=== PATIENT | male | born 1965 | race Caucasian/White ===

== ENCOUNTER → 2017-05-25 08:56 | Outpatient (CLI) | payer OTHER, SELFPAY ==
--- NOTE | 2017-05-25 08:59 | US_ITS ---
HISTORY: ITS.REASON: RUQ PAIN ORDERING PHYSICIAN: Blake Boyle MD PATIENT AGE: 51 years COMPARISON: None FINDINGS: PANCREAS: Unremarkable. No obvious mass or abnormal fluid collection. No ductal dilatation LIVER: No focal liver lesions demonstrated. Homogeneous echogenicity. No intrahepatic biliary ductal dilatation evident RIGHT KIDNEY: Submillimeter right exophytic renal cyst. No hydronephrosis GALLBLADDER: Multiple calcified gallstones are present. Common bile duct is normal at 4 mm. No gallbladder wall thickening or pericholecystic fluid IMPRESSION: Cholelithiasis
== END ==
PROVIDERS: PCP Emergency Medicine; Visit Provider Emergency Medicine
DX: R10.11 Right upper quadrant pain (principal)
CPT/HCPCS: 76705

== ENCOUNTER → 2017-06-26 12:47 | Outpatient (CLI) | payer OTHER, SELFPAY ==
[2017-06-26 13:27] LABS: Basophils # 0.1 K/mm3 (0-0.2); Basophils % 0.6 % (0.1-2.0); Eosinophils # 0.1 K/mm3 (0.0-0.4); Eosinophils % 1.3 % (0.1-12.0); Hematocrit 49.2 % (42.0-52.0); Hemoglobin 16.4 g/dL (14.1-18.0); Lymphocytes # 2.2 K/mm3 (0.7-4.5); Lymphocytes % 24.8 K/mm3 (10-50); Mean Corpuscular HGB Conc 33.4 g/dL (31.8-35.4); Mean Corpuscular Volume 86.9 fl (80-94); Mean Platelet Volume 8.7 fl (7.4-10.4); Monocytes # 0.6 K/mm3 (0.1-1.0); Monocytes % 7.1 % (1.7-9.3); Neutrophils # 5.9 K/mm3 (1.8-7.8); Neutrophils % 66.2 % (37.0-80.0); Platelet Count 300 K/mm3 (142-424); Red Blood Count 5.66 M/mm3 (4.60-6.20); Red Cell Distribution Width 13.1 % (11.5-17.5); White Blood Count 8.9 K/mm3 (4.8-10.8)
[2017-06-26 13:47] LABS: Alanine Aminotransferase 121 U/L (12-78); Albumin Level 3.6 gm/dL (3.4-5.0); Albumin/Globulin Ratio 0.8 (1.1-1.8); Alkaline Phosphatase 87 U/L (46-116); Anion Gap 15.1 mEq/L (5-15); Aspartate Amino Transferase 71 U/L (15-37); Bilirubin,Total 0.5 mg/dL (0.2-1.0); Blood Urea Nitrogen 12 mg/dL (7-18); Calcium 9.4 mg/dL (8.5-10.1); Carbon Dioxide 24 mmol/L (21.0-32.0); Chloride 104 mmol/L (98-107); Creatinine,Serum 1.01 mg/dL (0.70-1.30); Estimated Glomerular Filt Rate 78 ml/min (>60); GFR (African American) 94 ML/MIN (>60); Globulin 4.5 gm/dl (1.3-3.2); Glucose 146 mg/dL (74-106); Potassium 4.1 mmoL/L (3.5-5.1); Sodium 139 mmol/L (136-145); Total Protein,Serum 8.1 gm/dL (6.4-8.2)
== END ==
PROVIDERS: Surgery; PCP Emergency Medicine; Visit Provider Emergency Medicine
DX: K80.10 Calculus of gallbladder with chronic cholecystitis without obstruction (principal)
CPT/HCPCS: 36415; 80053; 85025

== ENCOUNTER 2017-06-29 06:06 | Day surgery (SDC) | payer OTHER, SELFPAY ==
[2017-06-28 13:22] VITALS: BMI 59.2
[2017-06-29] VITALS (15 sets, daily range): BP systolic 100–145; BP diastolic 60–80; PULSE 65–77; RESP 16–18; TEMP 36.6–43; O2SAT 91–95
--- NOTE | 2017-06-29 07:05 | HMH.ANESCL ---
[facility] Anesthesia Checklist - Patient Identification Patient Identification: Arm Band, Verbal (Name & ) - Structural Data Admitted From: Home Planned Operative Procedure/s: lap choly Consent for Planned Operative Procedure(s) Verified: Yes Verified Documents: Surgical Consent - Chart Verification Results Verified: CBC, BMP, ECG - Additional verifications Patient : No Anesthesia Reactions: No Hx Blood Transfusions: No Blood Transfusion Reaction: No Cephalosporin Allergy: No Previous Colonoscopy: No - Cardiovascular Assessment Heart Sounds: S1 & S2 Pulse Strength: Baseline Pulse Rhythm: Regular Peripheral Edema: No - Airway Assessment C-Spine Mobility Assessed: Yes TMJ Mobility Assessed: Yes Dentition: Edentulous - Neurological Assessment Level of Consciousness: Awake, Alert, Appropriate Hx Seizures: No Numbness or tingling in extremities: No - Anesthesia Plan Anesthesia Risk discussed: Yes ASA Class: III Anesthesia Type: General [facility] Anesthesia HX I have reviewed the patient's past medical history: Yes Medical History: Reports:: Asthma, Coronary Artery Disease, Gall Bladder Disease, Gastroesophageal Reflux Disease(GERD), Hyperlipidemia Denies:: Cancer, Diabetes Mellitus Type 1, Diabetes Mellitus Type 2, MRSA, Seizures Other Medical History: Reports: Other (high cholesterol). Denies: Blood Transfusion Reaction Amputation: No Fractures: Yes (wrist) *Family Hx:: Asthma, Cancer, Coronary Artery Disease, Diabetes, Heart Attack, Hypertension
--- NOTE | 2017-06-29 07:09 | P.PN_ITS ---
[facility] Anesthesia Checklist - Patient Identification Patient Identification: Arm Band, Verbal (Name & ) - Structural Data Admitted From: Home Planned Operative Procedure/s: lap choly Consent for Planned Operative Procedure(s) Verified: Yes Verified Documents: Surgical Consent - Chart Verification Results Verified: CBC, BMP, ECG - Additional verifications Patient : No Anesthesia Reactions: No Hx Blood Transfusions: No Blood Transfusion Reaction: No Cephalosporin Allergy: No Previous Colonoscopy: No - Cardiovascular Assessment Heart Sounds: S1 & S2 Pulse Strength: Baseline Pulse Rhythm: Regular Peripheral Edema: No - Airway Assessment C-Spine Mobility Assessed: Yes TMJ Mobility Assessed: Yes Dentition: Edentulous - Neurological Assessment Level of Consciousness: Awake, Alert, Appropriate Hx Seizures: No Numbness or tingling in extremities: No - Anesthesia Plan Anesthesia Risk discussed: Yes ASA Class: III Anesthesia Type: General [facility] Anesthesia HX I have reviewed the patient's past medical history: Yes Medical History: Reports:: Asthma, Coronary Artery Disease, Gall Bladder Disease , Gastroesophageal Reflux Disease(GERD), Hyperlipidemia Denies:: Cancer, Diabetes Mellitus Type 1, Diabetes Mellitus Type 2, MRSA, Seizures Other Medical History: Reports: Other (high cholesterol). Denies: Blood Transfusion Reaction Amputation: No Fractures: Yes (wrist) *Family Hx:: Asthma, Cancer, Coronary Artery Disease, Diabetes, Heart Attack, Hypertension
--- NOTE | 2017-06-29 08:39 | P.OP_ITS ---
Date of procedure: 06/29/17 Pre-op Diagnosis:: Chronic calculus cholecystitis Post-op diagnosis:: same Procedure performed:: Laparoscopic cholecystectomy Surgeon:: Jose Mcelroy MD [employer]aged Services Sales Consultant(s):: Deisy Julian BAKER PAINT:: Anthony Medina Anesthesia: GETA Estimated blood loss (mL): 10 Operative findings:: Severe pericholecystic fat stranding secondary to chronic cholecystitis Operative note:: After informed consent was obtained, the patient was taken to the operating room and placed in the supine position. General anesthesia was induced and the abdomen was prepped and draped in a sterile fashion. After infiltration with local anesthetic an infraumbilical incision was made. A Veress needle was placed in position. The abdomen was insufflated. A 5 mm optical trocar was placed in position. Under direct visualization, a 12 mm trocar was placed in the subxiphoid position and 2 additional 5 mm trocars were placed in the right upper quadrant. The gallbladder was elevated up and over the liver margin. Severe pericholecystic fat stranding was noted. Extensive dissection was utilized to separate the gallbladder from surrounding tissue as it was carefully elevated. The tissue around the cystic duct was carefully dissected. 3 clips were placed proximally and the duct was transected with harmonic casie. Harmonic casie were then utilized to dissect the gallbladder away from the liver margin with careful attention to the control of the cystic artery. The gallbladder was placed in a retrieval bag and removed through the subxiphoid trocar site. The right upper quadrant was thoroughly irrigated. No active bleeding or bile leak was noted. Fascia at the subxiphoid trocar site was reapproximated utilizing the 0 Ethibond. The remaining trocars were removed. All wounds were irrigated and skin was closed with 4-0 Monocryl in a subcuticular fashion. Steri-Strips were applied. The patient's anesthetic agents were reversed and extubation was completed prior to transfer to recovery in stable condition. Condition: stable Disposition: PACU Specimens:: Gallbladder and contents Complications:: No immediate
--- NOTE | 2017-06-29 08:52 | HMH.ANESI ---
[facility] Anesthesia Record Part I Intake, IV Amount: 1,600 Estimated blood loss (mL): 10 Urine output (mL): 0 Blood Pressure: 145/76 SaO2: 95 Pulse Rate: 65 Respiratory Rate: 16 Temperature: 98.6 F Patient is:: Drowsy, Stable Stable to PACU at:: 08:50
--- NOTE | 2017-06-29 08:53 | P.PN_ITS ---
[facility] Anesthesia Record Part II Discharge Time: 09:20 Destination: [facility] PACU nurse assessment reviewed?: Yes Patient Condition:: Good Anesthesia Complications:: None
--- NOTE | 2017-06-29 08:53 | HMH.ANESII ---
[facility] Anesthesia Record Part II Discharge Time: 09:20 Destination: [facility] with [facility] PACU nurse assessment reviewed?: Yes Patient Condition:: Good Anesthesia Complications:: None
--- NOTE | 2017-06-29 11:11 | PC.NURSE ---
pt not responding to pain questions
--- NOTE | 2017-06-29 11:16 | PC.NURSE ---
pt encouraged frequently to deep breathe and cough with no success, requested pt to lay on back so HOB may be raised for more efficient breathing but pt remained on his side, also requested to lay HOB back so that pt could stretch out instead of position but this not successful, pt states pain 6 of 10 although pt falls back to sleep immediately after reporting pain
--- NOTE | 2017-06-29 11:28 | PC.NURSE ---
pt states pain 5 of 10 although he falls asleep immediately after rating pain
== END 2017-06-29 10:30 | disposition home or self-care (01) ==
LOC: OR 06:07
PROVIDERS: PCP Emergency Medicine; Visit Provider Surgery
PROC: 0FT44ZZ Resection of Gallbladder, Percutaneous Endoscopic Approach (ICD-10-PCS; CPT 47562; principal; 2017-06-29 07:30)
DX: K80.10 Calculus of gallbladder with chronic cholecystitis without obstruction (principal)
CPT/HCPCS: 47562; 93005; 96374; J0131; J2405; J2710

== ENCOUNTER → 2017-10-22 16:00 | Outpatient (CLI) | payer OTHER, SELFPAY | PROVIDERS: Visit Provider Emergency Medicine | DX: Z79.899 Other long term (current) drug therapy (principal) ==

== ENCOUNTER → 2018-01-30 14:14 | Outpatient (CLI) | payer OTHER, SELFPAY ==
[2018-01-30 15:10] VITALS: PULSE 77; PULSE 80
== END ==
PROVIDERS: PCP Emergency Medicine; Visit Provider Emergency Medicine
DX: J45.909 Unspecified asthma, uncomplicated (principal)
CPT/HCPCS: 94060; 94640

== ENCOUNTER → 2018-04-03 09:03 | Outpatient (CLI) | payer OTHER, SELFPAY ==
--- NOTE | 2018-04-03 09:08 | XR_ITS ---
XR chest 2V HISTORY: Shortness of breath, cough ITS.REASON: asthma ORDERING PHYSICIAN: Blake Boyle MD PATIENT AGE: 52 years COMPARISON: 11/21/2017 FINDINGS: Unremarkable cardiovascular structures. No lobar consolidation or collapse. There is mild hyperinflation with attenuation of the peripheral pulmonary vessels suggesting obstructive chronic bronchitis/small airway disease/asthma. No evidence of pneumonia. No significant change from 11/21/2018. No acute bony anomalies. IMPRESSION: Mild hyperinflation suggesting small airway disease otherwise negative
--- NOTE | 2018-04-03 09:20 | XR_ITS ---
EXAM: XR cervical spine 4V HISTORY: ITS.REASON: neck pain ORDERING PHYSICIAN: Blake Boyle MD PATIENT AGE: 52 years COMPARISON: None FINDINGS: Normal alignment. No fracture or dislocation. There is degenerative disc disease at C4-C5 and C5-C6. There is an old spinous process fracture of C7. Mild foraminal narrowing is present on the right at C4-5 and 56 and on the left at C4-5 and C5-6. No lytic or blastic change. IMPRESSION: Cervical spondylosis with degenerative disc disease and foraminal narrowing as described above Old C7 spinous process fracture
--- NOTE | 2018-04-03 09:20 | XR_ITS ---
EXAM: XR thoracic spine 3V HISTORY: ITS.REASON: back pain Comparison: None FINDINGS: Normal alignment. No fracture or dislocation. No lytic or blastic change. There is mild degenerative disc disease in the mid and lower thoracic spine. No acute findings are evident. IMPRESSION: Mild degenerative disc disease in the mid and lower thoracic spine
--- NOTE | 2018-04-03 09:20 | XR_ITS ---
EXAM: XR lumbar spine min 4V HISTORY: ITS.REASON: back pain ORDERING PHYSICIAN: Blake Boyle MD PATIENT AGE: 52 years COMPARISON: None FINDINGS: Normal alignment. No fracture or dislocation. No lytic or blastic change. Degenerative disc disease is present at T12-L1. Mild degenerative disc disease L3-L4 L4-5 and L5-S1. Minimal endplate hypertrophic change. Mild facet arthritic change L5-S1 Incidental note made of a 4 mm calcific density overlying the lower pole of left kidney suggesting left nephrolithiasis. There is a mild amount of retained colonic feces. 2 mm stone noted over the mid polar region of the right kidney. IMPRESSION: 1. No acute finding. 2. Degenerative disc disease upper and lower lumbar spine with mild facet arthritic change at L5-S1 3. Bilateral nephrolithiasis
== END ==
PROVIDERS: PCP Emergency Medicine; Visit Provider Emergency Medicine
DX: M54.2 Cervicalgia (principal); M54.9 Dorsalgia, unspecified; J45.909 Unspecified asthma, uncomplicated
CPT/HCPCS: 71046; 72050; 72072; 72110

== ENCOUNTER → 2018-05-15 15:17 | Outpatient (CLI) | payer OTHER, SELFPAY ==
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
== END ==
PROVIDERS: PCP Emergency Medicine; Visit Provider Emergency Medicine
DX: M47.816 Spondylosis without myelopathy or radiculopathy, lumbar region (principal); M47.812 Spondylosis without myelopathy or radiculopathy, cervical region
CPT/HCPCS: 72148; 76376